=== PATIENT | female | born 1980 | race Asian ===

== ENCOUNTER 2017-07-29 05:09 | Emergency (ER) | payer OTHER ==
[~2017-07-29] VITALS: Ht 170.2 cm; Wt 117.9 kg
[2017-07-29] MEDS ORDERED: LISI10TA11 PO (05:16)
[2017-07-29 06:16] VITALS: BP 136/102; TEMP 98.3
== END 2017-07-29 06:22 | disposition home or self-care (01) ==
LOC: ED 05:09
DX: J45.901 Unspecified asthma with (acute) exacerbation (principal); J20.9 Acute bronchitis, unspecified; I10 Essential (primary) hypertension; R06.00 Dyspnea, unspecified
CPT/HCPCS: 99281

== ENCOUNTER 2017-08-18 09:34 | Emergency (ER) | payer OTHER ==
[~2017-08-18] VITALS: Ht 170.2 cm; Wt 112.0 kg
[~2017-08-18 09:34] MED LIST: LISI10TA11 PO
[2017-08-18 09:43] VITALS: BP 143/91; TEMP 98.2
== END 2017-08-18 10:08 | disposition home or self-care (01) ==
LOC: ED 09:34
DX: R03.0 Elevated blood-pressure reading, without diagnosis of hypertension (principal)
CPT/HCPCS: 99281

== ENCOUNTER 2018-09-01 10:35 | Emergency (ER) | payer OTHER ==
[~2018-09-01] VITALS: Ht 170.2 cm; Wt 120.2 kg
[2018-09-01 10:40] VITALS: TEMP 97.7
[2018-09-01 13:43] VITALS: BP 156/84
== END 2018-09-01 13:46 | disposition home or self-care (01) ==
LOC: ED 10:35
DX: S39.012A Strain of muscle, fascia and tendon of lower back, initial encounter (principal)
CPT/HCPCS: 81000; 99283

== ENCOUNTER 2019-08-15 14:34 | Emergency (ER) | payer OTHER ==
[~2019-08-15] VITALS: Ht 170.2 cm; Wt 112.0 kg
[2019-08-15 14:40] VITALS: TEMP 98.4
[2019-08-15 15:39] LABS: PLATELET COUNT 306 K/uL (152-353)
[2019-08-15 19:19] VITALS: BP 164/94
== END 2019-08-15 19:19 | disposition home or self-care (01) ==
LOC: ED 14:34
PROVIDERS: Emergency Medicine
DX: I10 Essential (primary) hypertension (principal); F17.210 Nicotine dependence, cigarettes, uncomplicated
CPT/HCPCS: 80053; 85027; 93005; 96374; 96375; 96376; 99284; J0360; J3490

== ENCOUNTER 2020-05-26 09:37 | Emergency (ER) | payer OTHER ==
[~2020-05-26] VITALS: Ht 170.2 cm; Wt 119.3 kg
[2020-05-26 09:48] VITALS: TEMP 98.7
[2020-05-26 12:10] VITALS: BP 152/99
== END 2020-05-26 12:10 | disposition home or self-care (01) ==
LOC: ED 09:37
DX: M25.562 Pain in left knee (principal); Z87.828 Personal history of other (healed) physical injury and trauma
CPT/HCPCS: 81025; 96372; 99283; J1885

== ENCOUNTER 2020-05-30 11:47 | Emergency (ER) | payer OTHER ==
[~2020-05-30] VITALS: Ht 170.2 cm; Wt 114.3 kg
[2020-05-30 12:12] VITALS: TEMP 98.3
[2020-05-30 14:33] LABS: PLATELET COUNT 258 K/uL (152-353)
[2020-05-30 14:57] VITALS: BP 140/97
== END 2020-05-30 14:57 | disposition home or self-care (01) ==
LOC: ED 11:47
PROVIDERS: Family Medicine
DX: J06.9 Acute upper respiratory infection, unspecified (principal); F17.210 Nicotine dependence, cigarettes, uncomplicated; Z11.59 Encounter for screening for other viral diseases
CPT/HCPCS: 85027; 87502; 87635; 87651; 99283; U00003

== ENCOUNTER 2021-02-14 18:39 | Emergency (ER) | payer OTHER ==
[~2021-02-14] VITALS: Ht 170.2 cm; Wt 114.3 kg
[2021-02-14 18:50] VITALS: TEMP 98.4
[2021-02-14 19:39] LABS: PLATELET COUNT 307 K/uL (152-353)
[2021-02-14 20:25] VITALS: BP 178/84
== END 2021-02-14 20:25 | disposition home or self-care (01) ==
LOC: ED 18:39
PROVIDERS: Family Medicine
DX: K21.9 Gastro-esophageal reflux disease without esophagitis (principal); K29.60 Other gastritis without bleeding
CPT/HCPCS: 80053; 82150; 83690; 85027; 96365; 96375; 99284; J2405; J3490

== ENCOUNTER 2021-09-13 12:51 | Emergency (ER) | payer OTHER ==
[~2021-09-13] VITALS: Ht 170.2 cm; Wt 109.8 kg
[2021-09-13 13:09] VITALS: TEMP 97
[2021-09-13 14:42] VITALS: BP 178/105
== END 2021-09-13 15:46 | disposition home or self-care (01) ==
LOC: ED 12:51
DX: M54.50 Low back pain, unspecified (principal); R10.9 Unspecified abdominal pain
CPT/HCPCS: 81000; 81025; 96372; 99283; J1885

== ENCOUNTER 2022-12-20 19:32 | Emergency (ER) | payer OTHER ==
[~2022-12-20] VITALS: Ht 170.2 cm; Wt 111.1 kg
[2022-12-20 19:45] VITALS: TEMP 98.7
[2022-12-20 21:07] VITALS: BP 154/77
== END 2022-12-20 21:07 | disposition home or self-care (01) ==
LOC: ED 19:32
PROC: 2W3RX1Z Immobilization of Left Lower Leg using Splint (ICD-10-PCS; principal; 2022-12-20)
DX: M25.572 Pain in left ankle and joints of left foot (principal); M79.672 Pain in left foot; G89.29 Other chronic pain
CPT/HCPCS: 81025; 99283